=== PATIENT | male | born 1985 | race Asian ===

== ENCOUNTER 2019-07-29 10:28 | Emergency (ER) | payer MEDICAID ==
[~2019-07-29] VITALS: Ht 177.8 cm; Wt 95.3 kg
[2019-07-29 10:52] VITALS: BP 129/84
[2019-07-29] MEDS ORDERED: Ketorolac 60mg Inj IM ONE (11:45)
[2019-07-29 12:45] VITALS: BP 129/84
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
[2019-07-29] MEDS ORDERED: IBUPROFEN600 MG ORAL (14:17)
[2019-07-29 14:33] VITALS: BP 124/68
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
== END 2019-07-29 14:35 | disposition home or self-care (01) ==
LOC: EMR 11:04
DX: M54.2 Cervicalgia (principal); M54.5 Low back pain; M79.602 Pain in left arm; V43.92XA Unspecified car occupant injured in collision with other type car in traffic accident, initial encounter; Y92.410 Unspecified street and highway as the place of occurrence of the external cause
CPT/HCPCS: 71046; 72020; 73060; 96372; Z7502; 99284